=== PATIENT | male | born 2000 | race Two or more races ===

== ENCOUNTER 2025-04-05 22:59 | Emergency (ER) | payer SELFPAY ==
[~2025-04-05] VITALS: Ht 172.7 cm; Wt 70.3 kg
[2025-04-06 07:01] VITALS: BP 100/62; TEMP 98; O2SAT 99
== END 2025-04-06 07:04 | disposition home or self-care (01) ==
LOC: ER 23:05
DX: F10.129 Alcohol abuse with intoxication, unspecified (principal); Y90.9 Presence of alcohol in blood, level not specified; Z79.899 Other long term (current) drug therapy
CPT/HCPCS: 82962-TC; 98960